=== PATIENT | male | born 1990 | race Caucasian/White ===

== ENCOUNTER → 2020-06-04 | Outpatient (CLI) | payer OTHER | LOC: HEART 5 04-08 10:00 | DX: R07.9 Chest pain, unspecified (principal); R00.2 Palpitations | CPT/HCPCS: 93306 ==

== ENCOUNTER → 2021-01-15 | Outpatient (CLI) | payer OTHER | LOC: RAD 12:34 | DX: M79.641 Pain in right hand (principal); M79.642 Pain in left hand; Z87.81 Personal history of (healed) traumatic fracture | CPT/HCPCS: 73120 ==